=== PATIENT | female | born 1945 | race African-American/Black ===

== ENCOUNTER 2016-12-19 08:05 | Day surgery (SDC) | payer MEDICARE ==
[2016-12-18 09:37] VITALS: BMI 21.7
[~2016-12-19 08:05] MED LIST: LACTATED RINGERS 1,000 ML IV SCH; LIDOCAINE 1% 20 ML VIAL (10MG/ML) FOR IV START INTRADERMA PRN
[2016-12-19 09:09] VITALS: TEMP 98.3
[2016-12-19] MEDS ORDERED: PROPOFOL 10 MG/ML 20 ML VIAL IV ONE (10:23)
[2016-12-19] MEDS ORDERED: LIDOCAINE 1% INJ 10MG/ML (20 ML MDV) ONE (10:23)
--- NOTE | 2016-12-19 11:11 | P.PCN ---
Date of Procedure: 12/19/16 Procedure(s) Performed: Procedure: Colonoscopy and polypectomy. Preoperative diagnosis: History of polyps, including a flat polypoid lesion around the hepatic flexure snared and removed piecemeal 01/2015. Postoperative diagnosis: 1. Residual polypoid tissue around the hepatic flexure removed with the snare piecemeal. 2. Small right colon polyp snared. Preparation: HalfLytely prep. Sedation: Was provided by anesthesia. Brief clinical history: The patient is a 71-year-old female who was initially referred in October of 2014 for screening for neoplasia. She had a prior exam around 9 years prior. On her exam October 2014 she had multiple polyps which were snared and there was a flat polypoid lesion around the hepatic flexure which I thought might represent tubulovillous adenoma or cancer. I obtained biopsies and localized the lesion by injecting Spot. The biopsies showed adenoma and after I discussed her case with surgery, the decision was made to try to remove it piecemeal in one or 2 sessions prior to consideration for surgery. This was performed in January 2015. The patient returns for follow-up at this time. No abdominal complaints, bleeding or anemia. Procedure: With the patient on her left lateral decubitus position and after informed consent and adequate sedation, the perianal area was inspected and it did not show any fissures or fistulas. There were no masses felt on digital rectal examination. The Olympus CFQ 160 L video colonoscope was then inserted in the rectum in the usual fashion and advanced to the cecum. The area of the flat polypoid lesion around the hepatic flexure was again noted showing residual elongated flat area measuring around 3 cm in greatest dimension and around 2 cm wide with broad attachment to the bowel wall was again noted. I proceeded to remove this lesion piecemeal with good hemostasis at the conclusion of the procedure. All the tissue removed was suctioned and sent to pathology. There was a small polyp in the right colon which was snared and retrieved by suction. I retroflexed endoscope in the rectum before the endoscope was withdrawn. The patient tolerated the procedure well. Plan: Will await pathology results and make additional recommendations.
[2016-12-19 11:32] VITALS: BP 124/78; PULSE 64; RESP 18
== END 2016-12-19 11:58 | disposition home or self-care (01) ==
LOC: ORWHC2ENDO 08:05
DX: Z12.11 Encounter for screening for malignant neoplasm of colon (principal); Z86.010 Personal history of colon polyps; D12.2 Benign neoplasm of ascending colon; D12.3 Benign neoplasm of transverse colon; I10 Essential (primary) hypertension; Z79.899 Other long term (current) drug therapy
CPT/HCPCS: 88305; 45385; J2001; J2704

== ENCOUNTER → 2018-03-07 | Outpatient (CLI) | payer MEDICARE ==
--- NOTE | 2018-03-11 09:32 | MM ---
Reason for exam: screening (asymptomatic). Last mammogram was performed 2 years ago. History: Patient is postmenopausal. Physical Findings: A clinical breast exam by your physician is recommended on an annual basis and results should be correlated with mammographic findings. MG 3D Screening Mammo W/Cad Bilateral CC and MLO view(s) were taken. Prior study comparison: February 23, 2016, bilateral MG 3d screening mammo w/cad. November 17, 2014, bilateral MG screening mammo w CAD. The breast tissue is heterogeneously dense. This may lower the sensitivity of mammography. No suspicious abnormality. No significant changes when compared with prior studies. ASSESSMENT: Negative, BI-RAD 1 RECOMMENDATION: Routine screening mammogram of both breasts in 1 year.
== END | disposition home or self-care (01) ==
LOC: RADMAMWWP 15:11
PROVIDERS: ATTEND Family Medicine
DX: Z12.31 Encounter for screening mammogram for malignant neoplasm of breast (principal)
CPT/HCPCS: 77063; 77067

== ENCOUNTER → 2018-11-22 | Outpatient (CLI) | payer MEDICARE ==
[2018-11-22 15:52] LABS: Blood Urea Nitrogen 14 mg/dL (7-17)
--- NOTE | 2018-11-22 20:21 | CT ---
EXAMINATION TYPE: CT abdomen pelvis w con DATE OF EXAM: 11/22/2018 COMPARISON: Pain HISTORY: Patient complains of left lower quadrant pain and bloating after eating x [address] DLP: 356.7 mGycm Automated exposure control for dose reduction was used. CONTRAST: CT scan of the abdomen pelvis is performed with IV Contrast, patient injected with 100 mL of Isovue 3 00. FINDINGS- LUNG BASES- No significant abnormality is appreciated. LIVER/GB-multiple hypodensities in the liver are seen which are too small to characterize. The larges t is in the posterior segment right lobe of the liver measuring 1.4 cm and 12 Hounsfield units compat ible with a cyst. No obvious gallstones.. PANCREAS- No gross abnormality is seen. SPLEEN- No gross abnormality is seen. ADRENALS-there is adrenal gland thickening on the left. KIDNEYS/BLADDER- no hydronephrosis. There are bilateral simple appearing renal cysts.. BOWEL-bowel gas pattern is nonspecific. No evidence of obstruction. There is wall thickening at the l evel the cecum. There are filling defects noted within the sigmoid colon which may represent small po lyps. Mild thickening at the level the GE junction. LYMPH NODES- No greater than 1cm abdominal or pelvic lymph nodes areappreciated. OSSEOUS STRUCTURES-hypertrophic and degenerative disc disease noted. Disc bulging likely in the basis of canal stenosis. Findings particularly pronounced at L3-4 and L4-5. OTHER- uterus is lobulated somewhat heterogeneous. Atherosclerotic change of the aorta and its branc h vessels. IMPRESSION- 1. Small filling defects within the sigmoid colon could represent small polyps. There also appears to be mild thickening the wall the cecum. Although this could be related to incomplete distention mucos al lesions are not excluded. Consider direct visualization. 2. Mild thickening the level GE junction correlate for mild esophagitis or mucosal lesion. 3. Lobulated uterus which is somewhat heterogeneous correlation with ultrasound recommended 4. Numerous hepatic lesions likely in the basis of hepatic cysts 5. Simple appearing bilateral renal cysts. #6 nonspecific left adrenal gland thickening
== END | disposition home or self-care (01) ==
LOC: RADCTMAIN 15:07
PROVIDERS: ATTEND Family Medicine
DX: K63.89 Other specified diseases of intestine (principal); K76.9 Liver disease, unspecified; N28.1 Cyst of kidney, acquired; E27.9 Disorder of adrenal gland, unspecified
CPT/HCPCS: 82565; 84520; 74177; 36415; Q9967

== ENCOUNTER → 2019-03-10 | Outpatient (CLI) | payer MEDICARE ==
--- NOTE | 2019-03-11 09:22 | MM ---
Reason for exam: screening (asymptomatic). Last mammogram was performed 1 year ago. History: Patient is postmenopausal. Physical Findings: A clinical breast exam by your physician is recommended on an annual basis and results should be correlated with mammographic findings. MG 3D Screening Mammo W/Cad Bilateral CC and MLO view(s) were taken. Prior study comparison: March 07, 2018, bilateral MG 3d screening mammo w/cad. February 23, 2016, bilateral MG 3d screening mammo w/cad. There are scattered fibroglandular densities. No significant changes when compared with prior studies. ASSESSMENT: Benign, BI-RAD 2 RECOMMENDATION: Routine screening mammogram of both breasts in 1 year.
== END | disposition home or self-care (01) ==
LOC: RADMAMWWP 15:36
PROVIDERS: ATTEND Family Medicine
DX: Z12.31 Encounter for screening mammogram for malignant neoplasm of breast (principal)
CPT/HCPCS: 77063; 77067

== ENCOUNTER → 2019-12-31 | Outpatient (CLI) | payer MEDICARE ==
--- NOTE | 2019-12-31 16:07 | XR ---
2 view abdomen HISTORY: K 59.09, constipation 2 views of the abdomen, correlation CT scan 11/22/2018 There is a spinal curvature, degenerative disc changes are present in the visualized spine. Vascular calcifications are noted incidentally. Lung bases are clear. There is no evident pneumoperitoneum or bowel obstruction. IMPRESSION: No acute abnormality.
== END | disposition home or self-care (01) ==
LOC: RADXRMAIN 13:56
PROVIDERS: ATTEND Internal Medicine
DX: K59.09 Other constipation (principal)
CPT/HCPCS: 74019

== ENCOUNTER → 2020-06-01 | Outpatient (CLI) | payer MEDICARE ==
--- NOTE | 2020-06-01 15:48 | CT ---
EXAMINATION TYPE: CT chest wo con DATE OF EXAM: 06/01/2020 COMPARISON: None HISTORY: Weight loss, left upper quadrant abdominal pain and heartburn. CT DLP: 153.4 mGycm, Automated exposure control for dose reduction was used. CONTRAST: Performed injected with 0 mL of Isovue 300. TECHNIQUE: Axial images were obtained at 5 mm thick sections. Reconstructed images are reviewed on [employer] computer in the coronal plane. FINDINGS: Portion of the thyroid visualized is normal. No suspicious lung nodules or focal infiltrates are present. No enlarged mediastinal or hilar adenopathy is evident. The ascending aorta diameter at the level o f the main pulmonary artery is 3.7 cm. The main pulmonary artery diameter at the bifurcation is 2.5 cm. Coronary artery calcification is present. Limited CT sections are obtained through the upper abdomen. Abdomen is essentially unremarkable. IMPRESSIONS: 1. No suspicious acute pulmonary process.
--- NOTE | 2020-06-01 15:56 | CT ---
EXAMINATION TYPE: CT abdomen pelvis w con DATE OF EXAM: 06/01/2020 COMPARISON: 11/22/2018 INDICATION: Weight loss, left upper quadrant abdominal pain and heartburn. DLP: 340.8 mGycm, Automated exposure control for dose reduction was used. CONTRAST: 100ml mL of Isovue 300. Study performed with Oral Contrast TECHNIQUE: Axial images were obtained from above the diaphragm to the pubic rami in the axial plane a t 5 mm thick sections. Reconstructed images are reviewed on the computer in the coronal plane. FINDINGS: Limited CT sections are obtained the lung bases. The lung bases are clear. CT ABDOMEN: Liver: There are several hypodensities scattered throughout the liver. There is a larger area measuri ng 1.0 cm and 36 Hounsfield units. There is a 2.2 x 1.5 cm hypodense area within the inferior right t ip of the liver measuring 20 Hounsfield units. Hepatic cyst remains within the differential. However, these cannot be classified as simple cysts. Monitoring is recommended. These were present previously . Spleen: Normal Pancreas: Normal Adrenal glands: The adrenal glands are normal. Gallbladder: Normal Kidneys: No masses are evident. No hydronephrosis is present. There is a 7 cm cyst measuring 13 Leonor nsfield units on the inferior pole right kidney . Small cortical renal cysts present on the left kidn ey. There is a cyst on the anterior medial mid left kidney measuring 2.1 cm and 13 Hounsfield units. Delayed images were obtained through the kidneys, which remain unremarkable. Aorta: Vascular calcification is within the aorta. Inferior vena cava: Normal. CT PELVIS: Loops of bowel within the abdomen and pelvis are normal. There are loops of bowel which are incom pletely distended or lack oral contrast limiting their evaluation. Appendix: Not visualized. No suspicious dilated tubular structures or inflammatory changes are eviden t. Urinary bladder: Normal. Genitourinary structures: Uterus is normal. Adnexa are normal Osseous structures: No suspicious lytic or sclerotic lesions. Some facet degenerative changes present . IMPRESSIONS: 1. Multiple stable appearing hypodensities within the liver likely hepatic cysts. Monitoring is recom mended as these cannot be classified as simple cysts on this exam. 2. Renal cysts.
== END | disposition home or self-care (01) ==
LOC: RADCTMAIN 13:24
PROVIDERS: ATTEND Family Medicine
DX: R93.2 Abnormal findings on diagnostic imaging of liver and biliary tract (principal); N28.1 Cyst of kidney, acquired; R63.4 Abnormal weight loss
CPT/HCPCS: 82565; 84520; 71250; 74177; 36415; Q9967

== ENCOUNTER → 2020-06-18 | Outpatient (CLI) | payer MEDICARE ==
--- NOTE | 2020-06-18 17:35 | BD ---
EXAMINATION TYPE: Axial Bone Density DATE OF EXAM: 06/18/2020 COMPARISON: NONE CLINICAL HISTORY: 74-year-old female postmenopausal screening Height: 58.5 IN Weight: 103 LBS FRAX RISK QUESTIONS: Current Tobacco Use: YES RISK FACTORS HISTORY OF: Active: YES Diet low in dairy products/other sources of calcium: YES Postmenopausal woman: AGE 49 Lost more than 2 inches in height since high school: YES 4" MEDICATIONS: Additional Medications: VIT D, BLOOD PRESSURE MEDS EXAM MEASUREMENTS: Bone mineral densitometry was performed using the [employer] System. Bone mineral density as measured about the Lumbar spine is: ----- L1-L4(G/cm2): 1.079 T Score Values are as follows: ----- L2: -0.8 ----- L3: -1.4 ----- L4: -0.5 ----- L1-L4: -0.8 Bone mineral density BASELINE Bone mineral density about the R hip (g/cm2): 0.766 Bone mineral density about the L hip (g/cm2): 0.754 T Score values are as follows: -----R Neck: -2.0 -----L Neck: -2.0 -----R Total: -1.8 -----L Total: -1.4 Bone mineral density BASELINE IMPRESSION: Osteopenia (T Score between -2.5 and -1). There is slightly increased risk of fracture and the patient may be considered for treatment. Re-Screen 2-5 years. NOTE: T-SCORE=SD OF THE YOUNG ADULT MEAN.
== END | disposition home or self-care (01) ==
LOC: RADBDWWP 16:01
PROVIDERS: ATTEND Family Medicine
DX: M85.80 Other specified disorders of bone density and structure, unspecified site (principal); Z78.0 Asymptomatic menopausal state
CPT/HCPCS: 77080

== ENCOUNTER → 2020-06-25 | Outpatient (CLI) | payer MEDICARE ==
--- NOTE | 2020-06-29 08:36 | MM ---
Reason for exam: screening (asymptomatic). Last mammogram was performed 1 year and 3 months ago. History: Patient is postmenopausal. Physical Findings: A clinical breast exam by your physician is recommended on an annual basis and results should be correlated with mammographic findings. MG 3D Screening Mammo W/Cad Bilateral CC and MLO view(s) were taken. Prior study comparison: March 10, 2019, bilateral MG 3d screening mammo w/cad. March 07, 2018, bilateral MG 3d screening mammo w/cad. The breast tissue is heterogeneously dense. This may lower the sensitivity of mammography. Benign appearing bilateral calcifications. No significant changes when compared with prior studies. ASSESSMENT: Benign, BI-RAD 2 RECOMMENDATION: Routine screening mammogram of both breasts in 1 year.
== END | disposition home or self-care (01) ==
LOC: RADMAMWWP 14:45
PROVIDERS: ATTEND Family Medicine
DX: Z12.31 Encounter for screening mammogram for malignant neoplasm of breast (principal)
CPT/HCPCS: 77063; 77067

== ENCOUNTER → 2020-11-02 | Outpatient (CLI) | payer MEDICARE | END | disposition home or self-care (01) | LOC: LABWHC1 09:25 | PROVIDERS: ATTEND Internal Medicine | DX: E27.40 Unspecified adrenocortical insufficiency (principal) | CPT/HCPCS: 36415; 82024; 82533 ==

== ENCOUNTER → 2021-04-08 | Outpatient (CLI) | payer MEDICARE ==
--- NOTE | 2021-04-08 16:49 | US ---
EXAMINATION TYPE: US abdomen complete DATE OF EXAM: 04/08/2021 COMPARISON: CT 2019 CLINICAL HISTORY: K76.89 HEPATIC CYST. Hx liver cysts EXAM MEASUREMENTS: Liver Length: 13.6 cm Gallbladder Wall: 0.2 cm CBD: 1.0 cm Spleen: 5.6 cm Right Kidney: 13.6 x 4.5 x 3.5 cm Left Kidney: 9.3 x 3.8 x 4.7 cm Pancreas: Tail obscured by overlying bowel gas Liver: Appears coarse. Liver cysts seen. Largest right posterior lobe, septated vs cluster = 1.9 x 1.9 x 1.4 cm. Largest left = 0.7 x 0.8 x 0.5 cm Gallbladder: wnl Evidence for sonographic Smith's sign: neg CBD: Appears slightly dilated for patient age Spleen: wnl Right Kidney: lower pole simple cyst = 7.5 x 8.0 x 6.0 cm. Medial anechoic area at hilum - 1.0 x 0. 6 cm Left Kidney: two cystic areas with largest lower pole = 1.8 x 1.9 x 2.3 cm Upper IVC: wnl Abd Aorta: No AAA visualized, atherosclerotic changes seen IMPRESSION: 1. Hepatic cysts. 2. Bilateral renal cysts
== END | disposition home or self-care (01) ==
LOC: RADUSWWP 12:02
PROVIDERS: ATTEND Family Medicine
DX: K76.89 Other specified diseases of liver (principal); N28.1 Cyst of kidney, acquired
CPT/HCPCS: 76700

== ENCOUNTER 2024-11-11 08:59 | Day surgery (SDC) | payer MEDICARE ==
[2024-11-07 13:05] VITALS: BMI 19.8
[2024-11-11] MEDS: IV FLUID CONTINUATION 1,000 ML IV ONE (09:44)
[2024-11-11] MEDS: LACTATED RINGERS 1,000 ML IV SCH (09:50)
[2024-11-11] MEDS: LIDOCAINE 1% (10MG/ML) FOR IV START INTRADERMA STA (09:50)
[2024-11-11 09:58] VITALS: TEMP 98.2
[2024-11-11] MEDS ORDERED: PROPOFOL 10 MG/ML 20 ML VIAL IV ONE (10:30)
--- NOTE | 2024-11-11 10:53 | P.PCN ---
Date of Procedure: 11/11/24 Procedure(s) Performed: BRIEF HISTORY: Patient is a 78-year-old pleasant female scheduled for an elective colonoscopy as a part of follow-up of large colon polyp that was noted on colonoscopy in the February 2024. She was noted to have a 3 cm broad-based transverse colon polyp that was removed by piecemeal snare polypectomy and biopsy revealed tubulovillous adenoma. PROCEDURE PERFORMED: Colonoscopy with biopsy and snare polypectomy. PREOPERATIVE DIAGNOSIS: Follow-up large colon polyp IV sedation per Anesthesia. PROCEDURE: After informed consent was obtained, the patient, was brought into the endoscopy unit. IV sedation was administered by Anesthesia under continuous monitoring. Digital rectal examination was normal. Initially the Olympus CF-160 flexible video colonoscope was then inserted in the rectum, gradually advanced into the cecum without any difficulty. Careful examination was performed as the scope was gradually being withdrawn. Ileocecal valve and the appendiceal orifice were visualized and appeared normal. Prep was excellent. Mucosa of the cecum, ascending colon appeared normal. In the transverse colon at the site of previous polypectomy there was a 4 mm residual polyp identified which was removed by cold biopsy. In the descending colon there was a 1 cm flat polyp that was removed by cold snare polypectomy. Rest of the descending colon, sigmoid colon, and rectum appeared normal. Retroflexion was performed in the rectum and no lesions were seen. The patient tolerated the procedure well. IMPRESSION: 4 mm transverse colon biopsies post cold biopsy 1 cm flat descending colon polyp status post snare polypectomy RECOMMENDATIONS: Findings of this examination were discussed with the patient as well as her family. She was advised to follow with the biopsy results. If the biopsy reveals adenoma she can have repeat colonoscopy in 3 years..
[2024-11-11 11:16] VITALS: BP 118/72; PULSE 68; RESP 16
== END 2024-11-11 11:49 | disposition home or self-care (01) ==
LOC: ORWHC2ENDO 08:59
PROVIDERS: ATTEND Internal Medicine Gastroenterology
DX: D12.3 Benign neoplasm of transverse colon (principal); D12.4 Benign neoplasm of descending colon; I10 Essential (primary) hypertension; Z79.899 Other long term (current) drug therapy; Z79.82 Long term (current) use of aspirin; Z90.49 Acquired absence of other specified parts of digestive tract; Z90.710 Acquired absence of both cervix and uterus; Z98.49 Cataract extraction status, unspecified eye
CPT/HCPCS: 88305; 45385; J2704